=== PATIENT | male | born 1990 | race African-American/Black ===

== ENCOUNTER 2019-02-03 11:20 | Emergency (ER) | payer OTHER ==
[~2019-02-03] VITALS: Ht 172.7 cm; Wt 74.8 kg
[2019-02-03] MEDS ORDERED: NORFLEX100MG PO (15:41)
[2019-02-03] MEDS ORDERED: KETO10TA2 PO (15:41)
== END 2019-02-03 15:45 | disposition home or self-care (01) ==
LOC: ER 11:20
DX: M79.661 Pain in right lower leg (principal); S86.89 Other injury of other muscles and tendons at lower leg level; X58.XXXS Exposure to other specified factors, sequela